=== PATIENT | male | born 1940 | race Native Hawaiian/Other Pacific Islander ===

== ENCOUNTER 2016-08-18 10:54 | Outpatient (CLI) | payer OTHER ==
[~2016-08-18 10:54] MED LIST: ANTACID OR; BIOTIN1000 MCG OR; EQ ACETAMINOPH500 MG OR; EQ ASPIRIN ADUL81 MG OR; HYDROCHLOROT12.5 M1 OR; LISI10TA11 PO; MULTIVITAMIN OR; VITAMIN D-11000 UNIT OR; [UNRECOGNIZED DRUG - OTHER] OR
[2016-08-18 11:13] LABS: PLATELET COUNT 121 K/uL (142-355)
[2016-08-18 11:28] LABS: POTASSIUM 3.7 mmol/L (3.6-5.2)
== END 2016-08-18 22:09 | disposition home or self-care (01) ==
LOC: LABW 10:54
PROVIDERS: Internal Medicine Nephrology
DX: I12.0 Hypertensive chronic kidney disease with stage 5 chronic kidney disease or end stage renal disease (principal); N18.5 Chronic kidney disease, stage 5; D63.1 Anemia in chronic kidney disease
CPT/HCPCS: 36415; 80053; 80074; 81000; 82306; 83735; 83970; 84100; 85027

== ENCOUNTER 2016-08-20 11:37 | Outpatient (CLI) | payer OTHER | END 2016-08-20 19:30 | disposition home or self-care (01) | LOC: LAB 11:37 | DX: I12.9 Hypertensive chronic kidney disease with stage 1 through stage 4 chronic kidney disease, or unspecified chronic kidney disease (principal); N18.5 Chronic kidney disease, stage 5; D63.1 Anemia in chronic kidney disease | CPT/HCPCS: 82570; 82575; 84156; 84540 ==

== ENCOUNTER 2016-10-30 13:17 | Outpatient (CLI) | payer OTHER | END 2016-10-30 16:00 | disposition home or self-care (01) | LOC: LABW 13:17 | DX: C73 Malignant neoplasm of thyroid gland (principal) | CPT/HCPCS: 36415; 84436; 84443; 84479 ==

== ENCOUNTER 2017-01-07 12:16 | Outpatient (CLI) | payer OTHER | END 2017-01-07 13:20 | disposition home or self-care (01) | LOC: LABW 12:16 | DX: C73 Malignant neoplasm of thyroid gland (principal) | CPT/HCPCS: 36415; 84436; 84443; 84479 ==

== ENCOUNTER 2017-02-09 09:38 | Outpatient (CLI) | payer OTHER ==
[2017-02-09 10:18] LABS: PLATELET COUNT 131 K/uL (142-355)
[2017-02-09 11:10] LABS: POTASSIUM 3.9 mmol/L (3.6-5.2)
== END 2017-02-09 10:40 | disposition home or self-care (01) ==
LOC: LABW 09:38
PROVIDERS: Internal Medicine Nephrology
DX: I12.9 Hypertensive chronic kidney disease with stage 1 through stage 4 chronic kidney disease, or unspecified chronic kidney disease (principal); N18.3 Chronic kidney disease, stage 3 (moderate); E87.4 Mixed disorder of acid-base balance; E55.9 Vitamin D deficiency, unspecified
CPT/HCPCS: 36415; 80053; 81000; 82570; 83735; 84100; 84155; 85027

== ENCOUNTER 2017-03-03 13:39 | Outpatient (CLI) | payer OTHER | END 2017-03-03 19:10 | disposition home or self-care (01) | LOC: LABW 13:39 | DX: C73 Malignant neoplasm of thyroid gland (principal) | CPT/HCPCS: 36415; 84436; 84443; 84480 ==

== ENCOUNTER 2017-05-12 15:08 | Outpatient (CLI) | payer OTHER | END 2017-05-12 19:05 | disposition home or self-care (01) | LOC: LABW 15:08 | DX: C73 Malignant neoplasm of thyroid gland (principal) | CPT/HCPCS: 36415; 84436; 84443; 84479 ==

== ENCOUNTER 2017-07-29 15:18 | Outpatient (CLI) | payer OTHER | END 2017-07-29 19:03 | disposition home or self-care (01) | LOC: LABW 15:18 | DX: C73 Malignant neoplasm of thyroid gland (principal) | CPT/HCPCS: 36415; 84443 ==

== ENCOUNTER 2017-08-06 13:36 | Outpatient (CLI) | payer OTHER ==
[2017-08-06 14:01] LABS: PLATELET COUNT 118 K/uL (142-355)
[2017-08-06 14:39] LABS: POTASSIUM 3.9 mmol/L (3.6-5.2)
== END 2017-08-06 22:41 | disposition home or self-care (01) ==
LOC: LABW 13:36
PROVIDERS: Internal Medicine Nephrology
DX: I12.0 Hypertensive chronic kidney disease with stage 5 chronic kidney disease or end stage renal disease (principal); N18.5 Chronic kidney disease, stage 5; D63.1 Anemia in chronic kidney disease; E55.9 Vitamin D deficiency, unspecified
CPT/HCPCS: 36415; 80048; 81000; 83735; 84100; 85027

== ENCOUNTER 2017-08-20 13:46 | Outpatient (CLI) | payer OTHER ==
[2017-08-20 14:18] LABS: POTASSIUM 3.7 mmol/L (3.6-5.2)
== END 2017-08-20 20:16 | disposition home or self-care (01) ==
LOC: LABW 13:46
PROVIDERS: Internal Medicine Nephrology
DX: K64.0 First degree hemorrhoids (principal); N18.5 Chronic kidney disease, stage 5
CPT/HCPCS: 36415; 80048; 82272

== ENCOUNTER 2017-09-09 13:45 | Outpatient (CLI) | payer OTHER ==
[2017-09-09 14:02] LABS: PLATELET COUNT 122 K/uL (142-355)
[2017-09-09 14:05] LABS: POTASSIUM 3.8 mmol/L (3.6-5.2)
== END 2017-09-09 19:24 | disposition home or self-care (01) ==
LOC: LABW 13:45
PROVIDERS: Internal Medicine Nephrology
DX: I12.9 Hypertensive chronic kidney disease with stage 1 through stage 4 chronic kidney disease, or unspecified chronic kidney disease (principal); N18.5 Chronic kidney disease, stage 5
CPT/HCPCS: 36415; 80048; 85027

== ENCOUNTER 2017-09-24 10:41 | Outpatient (CLI) | payer OTHER ==
[2017-09-24 11:28] LABS: POTASSIUM 3.1 mmol/L (3.6-5.2)
== END 2017-09-24 23:58 | disposition home or self-care (01) ==
LOC: LABW 10:41
PROVIDERS: Internal Medicine Nephrology
DX: N18.5 Chronic kidney disease, stage 5 (principal)
CPT/HCPCS: 36415; 80048

== ENCOUNTER 2017-10-13 16:30 | Outpatient (CLI) | payer OTHER | END 2017-10-13 20:05 | disposition home or self-care (01) | LOC: LABW 16:30 | DX: Z85.850 Personal history of malignant neoplasm of thyroid (principal) | CPT/HCPCS: 36415; 84436; 84443; 84480 ==

== ENCOUNTER 2017-10-14 10:56 | Outpatient (CLI) | payer OTHER ==
[2017-10-14 11:17] LABS: POTASSIUM 3.5 mmol/L (3.6-5.2)
[2017-10-14 11:18] LABS: PLATELET COUNT 123 K/uL (142-355)
== END 2017-10-15 10:56 | disposition home or self-care (01) ==
LOC: LABW 10:56
PROVIDERS: Internal Medicine Nephrology
DX: I12.0 Hypertensive chronic kidney disease with stage 5 chronic kidney disease or end stage renal disease (principal); N18.5 Chronic kidney disease, stage 5; D63.1 Anemia in chronic kidney disease; E83.40 Disorders of magnesium metabolism, unspecified
CPT/HCPCS: 36415; 80048; 83735; 84100; 85027

== ENCOUNTER 2017-11-11 14:46 | Outpatient (CLI) | payer OTHER ==
[2017-11-11 15:13] LABS: PLATELET COUNT 149 K/uL (142-355)
== END 2017-11-11 20:30 | disposition home or self-care (01) ==
LOC: LABW 14:46
PROVIDERS: Internal Medicine Nephrology
DX: I12.0 Hypertensive chronic kidney disease with stage 5 chronic kidney disease or end stage renal disease (principal); N18.5 Chronic kidney disease, stage 5; D63.1 Anemia in chronic kidney disease; E83.49 Other disorders of magnesium metabolism
CPT/HCPCS: 36415; 80048; 83735; 84100; 85027

== ENCOUNTER → 2017-11-14 07:18 | Outpatient (CLI) | payer OTHER | END | disposition E | LOC: AMB 07:18 | DX: I46.9 Cardiac arrest, cause unspecified (principal) ==